=== PATIENT | male | born 1985 ===

== ENCOUNTER 2018-02-25 12:22 | Emergency (ER) | payer OTHER ==
[~2018-02-25 12:22] MED LIST: LISD60TA
[2018-02-25] MEDS ORDERED: LIDOCAINE 2% JELLY 5 ML TUBE TP ONE (12:45)
[2018-02-25] MEDS ORDERED: APAP/HYDROCODONE 325/5 TAB PO ONE (12:45)
--- NOTE | 2018-02-25 13:00 | ER Report ---
History and Physical Time Seen By MD: 12:39 Hx. of Stated Complaint: STUCK R 5TH FINGER IN BLOWDRYER FAN, LAC NOTED THRU NAIL, BLEEDING CONTROLLED. HPI/ROS CHIEF COMPLAINT: finger injury HISTORY OF PRESENT ILLNESS: pt was heat sealing windows with blow dryer which had crack in the back; he mistakenly stuck r small finger in the back, coming in contact with the working fan, leading to laceration at tip of r sm finger. He covered it and came to ED. He complains of moderate pain in finger tip, no pain with movement. Mild decrease sensation ulnar side of distal finger. No other injuries. REVIEW OF SYSTEMS: Respiratory: no difficulty breathing Cardiovascular: No chest pain, no palpitations. Gastrointestinal: no vomiting Musculoskeletal: no other injuries Allergies: Coded Allergies: No Known Drug Allergies (Unverified , 02/15/18) Home Meds Reported Medications Lisdexamfetamine Dimesylate (Vyvanse) 60 Mg Tab.chew, DAILY 01/25/18 Reviewed Nurses Notes: Yes Hx Smoking: Yes (1/3 PACK PER DAY) Smoking Status: Current: Every Day Smoker Exposure to Second Hand Smoke?: No Hx Substance Use Disorder: Yes Hx Alcohol Use: Yes Constitutional Vital Sign - Last 24 Hours 02/25/18 02/25/18 02/25/18 02/25/18 12:29 12:30 12:45 13:00 Temp 98.6 Pulse 83 86 87 78 Resp 16 B/P (MAP) 133/91 124/86 (99) 114/86 (95) Pulse Ox 97 97 94 94 O2 Delivery Room Air 02/25/18 02/25/18 13:30 13:45 Pulse 71 77 B/P (MAP) 122/87 (99) Pulse Ox 94 95 Physical Exam General Appearance: The patient is alert, has no immediate need for airway protection and no current signs of toxicity. [ ] Eyes: Pupils equal and round no injection. Respiratory: no tachypnea Cardiac: regular rate Musculoskeletal: Extremities have full range of motion and are non tender with exception of distal phalanx of r sm finger; no stepoffs Skin: 1/2 cm distal laceration that includes distal nail, no separation. DIFFERENTIAL DIAGNOSIS: After history and physical exam differential diagnosis was considered for fracture, subungual hematoma, foreign body, fracture. Medical Decision Making EKG/Imaging Imaging X-ray: finger was obtained. I viewed the images myself on the PACS system. My interpretation of the images is: no fracture, foreign body. The radiologist interpretation had no clinically significant variation from this interpretation. ED Course/Re-evaluation ED Course After evalution, no e/o fb, finger irrigated thoroughly, no fracture. After consideration of r/b, as no active bleeding, wound intact, I recommend no suturing/dermabond. Discussed r/b, f/u recommendations, SRP's. Tetanus updated. Decision to Disposition Date: Feb 25, 2018 Decision to Disposition Time: 13:41 Depart Departure Latest Vital Signs Vital Signs Date Time Temp Pulse Resp B/P (MAP) Pulse Ox O2 Delivery O2 Flow Rate FiO2 02/25/18 13:45 77 95 02/25/18 13:30 122/87 (99) 02/25/18 12:29 98.6 16 Room Air Impression: Primary Impression: Finger laceration Condition: Improved Disposition: HOME OR SELF-CARE Patient Instructions: Finger Laceration (ED) Additional Instructions: As we discussed, I recommend tylenol, ice, elevation for pain. After 24-48 hours, remove bandage and apply bacitracin 2-3 times daily and bandage for protection. Return for signs of infection or any concerns. Problem Qualifiers Primary Impression: Finger laceration Encounter type: initial encounter Finger: little finger Damage to nail status: with damage Foreign body presence: without foreign body Laterality: right Qualified Codes: S61.316A - Laceration without foreign body of right little finger with damage to nail, initial encounter FIDE MARTIN MD Feb 25, 2018 13:00
[2018-02-25 13:30] VITALS: BP 122/87
[2018-02-25] MEDS ORDERED: DIPHTH/TETANUS/ACEL. PERTUSSIS IM ONLY ONE (13:30)
--- NOTE | 2018-02-25 13:34 | RADIOLOGY IMAGING REPORT ---
FACILITY: [facility] PATIENT NAME: Camilo Arthur : 1985 MR: [id number] V: [id number] EXAM DATE: ORDERING PHYSICIAN: FIDE MARTIN TECHNOLOGIST: Location: [facility] Patient: Camilo Arthur : 1985 Visit/Account:[id number] Date of Sevice: 02/25/2018 FINGER RIGHT 5TH DIGIT HISTORY: injury to distal soft tissue, bony ttp Additional history: None COMPARISON: None. FINDINGS: 3 views Bandage material seen around the tip of the right fifth finger. No definite air seen within the soft tissues. No radiopaque foreign bodies. Osseous structures of the right fifth finger are intact. IMPRESSION: Negative exam Report Dictated By: Migue Hackett MD at 02/25/2018 1:28 PM Report E-Signed By: Migue Hackett MD at 02/25/2018 1:30 PM [id number]
== END 2018-02-25 14:00 | disposition home or self-care (01) ==
LOC: ER 13:36
DX: S61.316A Laceration without foreign body of right little finger with damage to nail, initial encounter (principal)
CPT/HCPCS: 90471; 90715; 99283

== ENCOUNTER 2018-02-28 00:33 | Day surgery (SDC) | payer OTHER ==
[~2018-02-28] VITALS: Ht 195.6 cm; Wt 102.5 kg
[2018-02-28] MEDS ORDERED: PROPOFOL EMUL(*) 10MG/ML 20 ML 40 ML ONE (07:25)
[2018-02-28] MEDS ORDERED: LIDOCAINE MPF 1% 5 ML VIAL ONE (07:25)
[2018-02-28 09:00] VITALS: BP 126/86
[2018-02-28] MEDS ORDERED: PROPOFOL EMUL(*) 10MG/ML 20 ML 20 ML ONE (09:24)
[2018-02-28 09:35] VITALS: BP 95/60
--- NOTE | 2018-02-28 09:40 | Short(Outpt) Discharge Summary ---
Discharge Summary Reason for Hosp/Final Diag: (1) History of colon polyps Status: Chronic Hospital Course & Plan: Colonoscopy completed without problems, normal. Departure Discharge to: Home, Self Care Discharge Instructions Home Meds Reported Medications Lisdexamfetamine Dimesylate (Vyvanse) 60 Mg Tab.chew, DAILY 01/25/18 Diet: Regular Activity: As Tolerated Special Instructions: Your colonoscopy was completed without problems and your prep was excellent (Good Job!!). I didn't find any polyp or anything else abnormal. I recommend that your next colonoscopy be in 5 years due to your previous history of colon polyps. IRINA KAY MD Feb 28, 2018 09:40
[2018-02-28 10:00] VITALS: BP 116/74
[2018-02-28 10:17] VITALS: BP 113/82
[2018-02-28 10:18] VITALS: BP 112/86
[2018-02-28] MEDS ORDERED: LIDOCAINE/SOD BICARB 8.4% SYR ID ONE (10:30)
[2018-02-28] MEDS ORDERED: NORMOSOL R SOLN(*) 1000 ML BAG 1,000 ML IV PRN (10:30)
== END 2018-02-28 10:30 | disposition home or self-care (01) ==
LOC: OR 00:33
PROVIDERS: ATTEND Surgery
DX: Z12.11 Encounter for screening for malignant neoplasm of colon (principal); Z86.010 Personal history of colon polyps
CPT/HCPCS: 00812; 45378; J2001; J2704

== ENCOUNTER 2018-07-12 11:12 | Emergency (ER) | payer OTHER ==
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
[2018-07-12] MEDS ORDERED: TRAZ50TA34 PO (11:27)
[2018-07-12] MEDS ORDERED: PARO-243 PO (11:27)
[2018-07-12] MEDS ORDERED: CLON1PAT19 TD (11:27)
[2018-07-12 12:22] LABS: PLATELET COUNT, AUTOMATED 299 K/uL (150-450)
[2018-07-12 13:59] VITALS: BP 138/72
[2018-07-13] MEDS ORDERED: CLON-327 PO (14:51)
[2018-07-13] MEDS ORDERED: PARO10TA80 PO (14:51)
[2018-07-13] MEDS ORDERED: LISD60CA2 PO (14:51)
== END 2018-07-12 14:10 ==
LOC: ER 11:19
DX: R45.851 Suicidal ideations (principal); F41.9 Anxiety disorder, unspecified
CPT/HCPCS: 36415; 80305; 80320; 80329; 81001; 82040; 82247; 82310; 82374; 82435; 82565; 82947; 83735; 84075; 84132; 84155; 84295; 84443; 84450; 84460; 84520; 85025; 99284

== ENCOUNTER 2018-07-12 13:16 | Inpatient (IN) | payer OTHER ==
[~2018-07-12] VITALS: Ht 195.6 cm; Wt 99.8 kg
[~2018-07-12 13:16] MED LIST changes: +CLON1PAT19 TD; +PARO-243 PO; +TRAZ50TA34 PO
[2018-07-12 15:45] VITALS: BP 123/93
[2018-07-12] MEDS ORDERED: MAG HYD/AL HYD/SIMETH 30ML UDC PO PRN (15:50)
[2018-07-12] MEDS ORDERED: ACETAMINOPHEN 325 MG TAB PO PRN (15:50)
[2018-07-12] MEDS ORDERED: NICOTINE CARTRIDGE 1 EA PO PRN (17:30)
[2018-07-12] MEDS ORDERED: NICOTINE INH SYSTEM 10 MG/INH INH PRN (17:30)
[2018-07-12] MEDS ORDERED: NICOTINE POLACRILEX 2 MG GUM PO PRN ×2 (17:35)
[2018-07-12] MEDS: traZODone HCL 50 MG TAB PO SCH (20:51)
[2018-07-13 06:21] VITALS: BP 124/80
[2018-07-13] MEDS ORDERED: NICOTINE CARTRIDGE 1 EA PO PRN (07:05)
[2018-07-13] MEDS: NICOTINE INH SYSTEM 10 MG/INH INH PRN ×4 (07:27→20:15)
[2018-07-13] MEDS: MULTIVITAMINS PO SCH (08:23)
[2018-07-13] MEDS ORDERED: cloNIDine HCL 0.1 MG TAB PO PRN (09:50)
[2018-07-13] MEDS: PARoxetine HCL 20 MG TAB PO SCH (10:09)
[2018-07-13 12:09] VITALS: BP 118/89
[2018-07-13] MEDS ORDERED: LISD60CA2 PO (14:51)
[2018-07-13] MEDS ORDERED: CLON-327 PO (14:51)
[2018-07-13] MEDS ORDERED: PARO10TA80 PO (14:51)
[2018-07-13] MEDS: DOCUSATE SODIUM 100 MG CAP PO SCH (17:46)
[2018-07-13] MEDS: traZODone HCL 50 MG TAB PO SCH (20:36)
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
[2018-07-14 05:49] VITALS: BP 112/68
[2018-07-14] MEDS: NICOTINE INH SYSTEM 10 MG/INH INH PRN ×3 (08:18→20:39)
[2018-07-14] MEDS: MULTIVITAMINS PO SCH (08:18)
[2018-07-14] MEDS: DOCUSATE SODIUM 100 MG CAP PO SCH (08:18)
[2018-07-14] MEDS: PARoxetine HCL 20 MG TAB PO SCH (08:18)
[2018-07-14 13:05] VITALS: BP 116/74
--- NOTE | 2018-07-14 13:26 | BHS Progress Note ---
[facility] - Subjective Progress Notes Subjective Pt seen in treatment team with his and therapist attending. Pt still reporting depression and anxiety, though resolving a bit. Still a lot of negative thinking, self-doubt. Denies SI today, last time was yesterday morning. Tolerating meds well without side effects. I did speak with pt r egarding possibility of priapism with trazodone, and also possible sexual side effects with paroxetine, and he understands to seek medical attention if priapism. In team we discussed possibility of couples therapy for pt and his after discharge and they are both agreeable. Will continue suicide precautions, continue current medications. Suicidal Ideation: None Homicidal Ideation: None [facility] - Objective Physical Exam Vital Signs Vital Signs 07/14/18 13:05 Temp 97.9 Pulse 90 Resp 16 B/P (MAP) 116/74 (88) Pulse Ox 92 O2 Delivery Room Air Muscle Strength and Tone: WNL Gait and Station: Steady [facility] Medications Reviewed: Side Effects, Benefits of Medication, Risks Mental Status Exam General Appearance: Casual, Well Groomed, Good Eye Contact, Cooperative, Polite, Good Interaction, Tearful Speech: Clear, Spontaneous, Normal Rate, Normal Rhythm, Normal Volume, Normal Tone Mood: Dysthmic/Depressed Affect: Calm, Sad Thought Process: Organized, Logical, Goal Directed Thought Content: Suicidal Ideation (resolving); No Homicidal Ideation, No Delusions, No Auditory Halllucinations, No Visual Hallucinations, No Thought Broadcasting, No Ideas of Reference, No Obsessions, No Compulsions, No Other Sensorium: Clear Cognition: Alert & Oriented-Person, Alert & Oriented-Place, Alert & Oriented- Time, Glrym-Vqorhnvb-Xycbyybif Memory: Immediate, Recent, Remote Intelligence: Above Average Insight Judgment: Fair [facility] Assessment and Plan [id number] Encounter Date: Jul 14, 2018 Knxo-[id number] Encounter Time: 09:30 [facility] Plan: Admit to Unit, Necessary Precautions, Individual/Group Therapy, Admin/Titrate Meds, Educate Patient Tobacco Medications: Started Multpiple Antipsychotics Used: No Problems: (1) Major depressive disorder (2) Cannabis use disorder, mild, abuse FRANCES COX MD Jul 14, 2018 13:26
[2018-07-14] MEDS: traZODone HCL 50 MG TAB PO SCH (20:39)
[2018-07-14 20:41] VITALS: BP 119/80
[2018-07-15 06:10] VITALS: BP 123/75
[2018-07-15] MEDS: MULTIVITAMINS PO SCH (07:55)
[2018-07-15] MEDS: PARoxetine HCL 20 MG TAB PO SCH (07:55)
[2018-07-15] MEDS: DOCUSATE SODIUM 100 MG CAP PO SCH (07:55)
--- NOTE | 2018-07-15 08:48 | BHS Progress Note ---
BHS - Subjective Progress Notes Subjective "The past couple of days things have been a lot better. When I started getting really depressed, I started using a lot of cannabis and now I'm coming off of that." Rating depression 04/20, last suicidal ideation ", the old plan was a gun but that's not an option now. There's no firearms in my house and I'm not going to park in the garage." Worries about "loneliness" when returns home, doesn't want to isolate Kari at [facility] current therapist, working on marital stress Anxiety 07/19, "too much caffeine" at home causes increased anxiety, was drinking up to 500mg/day Denies s/s helga or psychosis, sleep improving, going to bed earlier Suicidal Ideation: None Homicidal Ideation: None S - Objective Physical Exam Vital Signs Vital Signs Date Time Temp Pulse Resp B/P (MAP) Pulse Ox O2 Delivery O2 Flow Rate FiO2 07/15/18 06:10 97.2 63 123/75 (91) 95 Room Air 07/14/18 13:05 16 Muscle Strength and Tone: WNL Gait and Station: Steady BHS Medications Reviewed: Side Effects, Benefits of Medication, Risks Allergies Reviewed: Yes (minimal depression) Mental Status Exam General Appearance: Casual, Well Groomed, Good Eye Contact, Cooperative, Polite, Good Interaction, Tearful Speech: Clear, Spontaneous, Normal Rate, Normal Rhythm, Normal Volume, Normal Tone Mood: Dysthmic/Depressed Affect: Full and Appropriate, Calm; No Sad Thought Process: Organized, Logical, Goal Directed Thought Content: No Homicidal Ideation, No Delusions, No Auditory Halllucin ations, No Visual Hallucinations, No Thought Broadcasting, No Ideas of Reference, No Obsessions, No Compulsions, No Other Sensorium: Clear Cognition: Alert & Oriented-Person, Alert & Oriented-Place, Alert & Oriented- Time, Bteiv-Qipqjaqs-Rynqmchxo Memory: Immediate, Recent, Remote Intelligence: Above Average Insight Judgment: Fair Lab Allergies Coded Allergies No Known Drug Allergies (Uohfyojfjb08/7/18) Vital Signs Date Time Temp Pulse Resp B/P (MAP) Pulse Ox O2 Delivery O2 Flow Rate FiO2 07/15/18 06:10 97.2 63 123/75 (91) 95 Room Air 07/14/18 13:05 16 S Assessment and Plan Tjzj-uw-Zpfx Encounter Date: Jul 15, 2018 Hyjx-fc-Pgsm Encounter Time: 08:45 [facility] Plan: Admit to Unit, Necessary Precautions, Individual/Group Therapy, Admin/Titrate Meds, Educate Patient Tobacco Medications: Started Multpiple Antipsychotics Used: No Problems: (1) Major depressive disorder Status: Chronic (2) Cannabis use disorder, mild, abuse Status: Chronic (3) Suicidal ideations Status: Resolved Condition Continue current medications and treatment Encourage outpatient individual therapy and medication management upon discharge Plans on couples therapy upon discharge at [facility] Maintain precautions Ongoing discharge planning Treatment team Tuesday07/17/18 DARIUSZ ROSENTHAL NP Jul 15, 2018 08:48
[2018-07-15 12:55] VITALS: BP 116/78
[2018-07-15] MEDS: NICOTINE INH SYSTEM 10 MG/INH INH PRN (19:15)
[2018-07-15 19:47] VITALS: BP 118/76
[2018-07-15] MEDS ORDERED: MAGNESIUM CITRATE 300 ML BTL PO ONE (20:20)
[2018-07-15] MEDS: traZODone HCL 50 MG TAB PO SCH (21:31)
[2018-07-16 06:12] VITALS: BP 121/74
[2018-07-16] MEDS: PARoxetine HCL 20 MG TAB PO SCH (08:18)
[2018-07-16] MEDS: MULTIVITAMINS PO SCH (08:18)
[2018-07-16] MEDS: NICOTINE INH SYSTEM 10 MG/INH INH PRN ×2 (08:18→12:53)
[2018-07-16] MEDS: DOCUSATE SODIUM 100 MG CAP PO SCH (08:18)
--- NOTE | 2018-07-16 09:29 | BHS Progress Note ---
[facility] - Subjective Progress Notes Subjective "Great. I feel much much better. I don't feel sad, I don't feel anxious." Denies Si reporting his last SI was morning. He denies problems with sleep overall and that Trazodone continues to be helpful PRN. He is working on his wellness and recovery plan. His and therapist will be involved in treatment team tomorrow morning. Suicidal Ideation: None Homicidal Ideation: None [facility] - Objective Physical Exam Vital Signs Vital Signs Date Time Temp Pulse Resp B/P (MAP) Pulse Ox O2 Delivery O2 Flow Rate FiO2 07/16/18 06:12 98.9 68 121/74 (90) 95 Room Air 07/15/18 12:55 16 Muscle Strength and Tone: WNL Gait and Station: Steady [facility] Medications Reviewed: Side Effects, Benefits of Medication, Risks Allergies Reviewed: Yes (minimal depression) Mental Status Exam General Appearance: Casual, Well Groomed, Good Eye Contact, Cooperative, Polite, Good Interaction, Tearful Speech: Clear, Spontaneous, Normal Rate, Normal Rhythm, Normal Volume, Normal Tone Mood: Euthymic Affect: Full and Appropriate, Calm; No Sad Thought Process: Organized, Logical, Goal Directed; No Loose Associations, No Flight of Ideas Thought Content: No Homicidal Ideation, No Delusions, No Auditory Halllucinations, No Visual Hallucinations, No Thought Broadcasting, No Ideas of Reference, No Obsessions, No Compulsions, No Other Sensorium: Clear Cognition: Alert & Oriented-Person, Alert & Oriented-Place, Alert & Oriented- Time, Kjwyq-Nchyhizq-Lteupccll Memory: Immediate, Recent, Remote Intelligence: Above Average Insight Judgment: Fair [facility] Assessment and Plan Evhv-fd-Wtxc Encounter Date: Jul 16, 2018 Xugx-kd-Osxj Encounter Time: 09:00 [facility] Plan: Admit to Unit, Necessary Precautions, Individual/Group Therapy, Admin/Titrate Meds, Educate Patient Tobacco Medications: Started Multpiple Antipsychotics Used: No Problems: (1) Major depressive disorder Status: Chronic Problem Qualifiers (1) Major depressive disorder: Major depression recurrence: recurrent Major depression episode severity: moderate KYLAH PITTS NP Jul 16, 2018 09:29
[2018-07-16] MEDS ORDERED: DOCU-416 PO (13:02)
[2018-07-16] MEDS ORDERED: NIC10R INH (13:02)
[2018-07-16] MEDS ORDERED: MULT-859 PO (13:03)
--- NOTE | 2018-07-17 03:55 | DISCHARGE SUMMARY ---
DATE OF ADMISSION: July 12, 2018 DATE OF DISCHARGE: July 16, 2018 Genb-ra-lfho visit with patient on 07/16/2018 at 0930. ATTENDING PRACTITIONER Deonna Day, Psychiatric Nurse Practitioner. FINAL DIAGNOSES 1. Major depressive disorder, recurrent, moderate. 2. Cannabis use disorder, mild. 3. Attention-deficit hyperactivity disorder. REASON FOR ADMISSION This is a 32-year-old fczdcij-zcv-aeuojvixp male admitted to the unit on a voluntary basis due to increasing depression with suicidal ideation. PHYSICAL EXAMINATION Please see emergency room note for a complete review of systems. Vital signs on the day of discharge include temperature 98.9, pulse 68, blood pressure 121/74, oxygen saturations 95% on room air. He denies any physical complaints. LABORATORY DATA Completed on admission, include unremarkable CBC, chem panel, TSH. Toxicology screen was positive for amphetamines due to his Vyvanse. MENTAL STATUS EXAMINATION GENERAL APPEARANCE, BEHAVIOR AND ATTITUDE: Patient is pleasant and cooperative. He appears his stated age, and he has good grooming. SPEECH: Clear, spontaneous, and of normal rate, rhythm, and volume. MOOD: Described as great, feeling much better. "I don't feel sad." AFFECT: Rangeful and appropriate and mood-congruent. THOUGHT PROCESSES: Logical and goal-directed. No loose associations or flight of ideas. THOUGHT CONTENT: He denies any suicidal thoughts, homicidal thoughts; is free of any hallucinations, ideas of reference. No delusions are elicited. SENSORIUM: Clear. COGNITION: He is alert and oriented to person, place, time, and situation. MEMORY: Immediate, recent, and remote estimated grossly intact. INTELLIGENCE: Average, based upon interview. INSIGHT AND JUDGMENT: Good. He acknowledges that he has been struggling with depression. He is invested in continuing in his outpatient management with his outpatient providers. TREATMENT Patient was continued on his outpatient medications including Paxil and his trazodone as well as clonidine, in treatment of depression and anxiety. He participated in individual, group and milieu therapy and psychoeducation. HOSPITAL COURSE Patient was pleasant and cooperative throughout his stay. He denied suicidal ideation, reporting that his last suicidal thought was prior to admission. We did meet with the patient this morning in treatment team, and it was later in the afternoon that he decided that he was feeling ready to discharge and requested to do so. CONDITION OF PATIENT ON DISCHARGE Considered stable and a minimal risk to himself and others, appropriate for outpatient management. DISPOSITION Patient was discharged to home. He is to follow up with his providers at [facility] as scheduled for medications and therapy. Patient was discharged on the following medications: 1. Paxil 20 mg daily. 2. Clonidine 0.05 mg every six hours as needed or anxiety. 3. Trazodone 50 mg at bedtime. 4. He will resume his outpatient Vyvanse. The 24-hour crisis line number was provided should symptoms or problems return. The risks, benefits, and alternatives of the above discharge plan were discussed with client. Informed consent was given to proceed with the above discharge plan by this competent patient. THELMA
== END 2018-07-16 13:30 | disposition home or self-care (01) | DRG 885 ==
LOC: BHS 13:16
PROVIDERS: ADMIT Psychiatry & Neurology Psychiatry; ATTEND Psychiatry & Neurology Psychiatry
DX: F33.1 Major depressive disorder, recurrent, moderate (principal); R45.851 Suicidal ideations; F12.10 Cannabis abuse, uncomplicated; F90.9 Attention-deficit hyperactivity disorder, unspecified type; Z63.5 Disruption of family by separation and divorce; Z81.8 Family history of other mental and behavioral disorders

== ENCOUNTER 2018-08-05 20:38 | Emergency (ER) | payer OTHER ==
[~2018-08-05 20:38] MED LIST changes: +CLON-327 PO; +DOCU-416 PO; +LISD60CA2 PO; +MULT-859 PO; +NIC10R INH; +PARO10TA80 PO
--- NOTE | 2018-08-05 20:44 | ER Report ---
History and Physical Time Seen By MD: 20:44 HPI/ROS CHIEF COMPLAINT: Suicidal ideation HISTORY OF PRESENT ILLNESS: 32-year-old male run in by police on an emergency assisted after he expressed suicidal ideation. He was planning to clean out h is garage and pull his car in insert the engine and I of carbon monoxide poisoning. Patient was just in 3 weeks ago to our mental health unit for 3 days for similar presentation and alcohol abuse. Patient appears very withdrawn and laxative days ago with his reasoning. States a matter fact that he is planning to kill himself. REVIEW OF SYSTEMS: Respiratory: No cough, no dyspnea. Cardiovascular: No chest pain, no palpitations. Gastrointestinal: No vomiting, no abdominal pain. Musculoskeletal: No back pain. Allergies: Coded Allergies: No Known Drug Allergies (Unverified , 02/15/18) Home Meds Reported Medications Multivits,Ca,Minerals/Iron/Fa (THERA-M TABLET) 1 Each Tablet, 1 EACH PO DAILY 07/16/18 Docusate Sodium (COLACE) 100 Mg Capsule, 100 MG PO QAM, CAPSULE 07/16/18 Nicotine (NICOTROL) 10 Mg/Inh Ctr, 10 MG INH Q1-2H PRN for NICOTINE REPLACEMENT 07/16/18 Paroxetine Hcl (PAROXETINE HCL) 10 Mg Tablet, 20 MG PO QDAY 07/13/18 Clonidine Hcl (CLONIDINE HCL) 0.1 Mg Tablet, 0.5-1 TAB PO BID, TAB 07/13/18 Lisdexamfetamine Dimesylate (VYVANSE) 60 Mg Capsule, 60 MG PO QDAY, CAPSULE 07/13/18 Trazodone Hcl (TRAZODONE HCL) 50 Mg Tablet, 0.5-1 TAB PO QHS PRN for SLEEP 07/12/18 Reviewed Nurses Notes: Yes Old Medical Records Reviewed: Yes Hx Smoking: Yes Smoking Status: Current: Every Day Smoker Exposure to Second Hand Smoke?: No Hx Substance Use Disorder: Yes Hx Alcohol Use: Yes Constitutional Vital Sign - Last 24 Hours 08/05/18 08/05/18 08/05/18 20:49 22:30 23:00 Temp 98.8 Pulse 79 79 88 Resp 16 18 16 B/P (MAP) 117/77 118/74 (89) 122/68 (86) Pulse Ox 92 96 Physical Exam General Appearance: The patient is alert, has no immediate need for airway protection and no current signs of toxicity. Eyes: Pupils equal and round no injection. Respiratory: Chest is non tender, lungs are clear to auscultation. Cardiac: regular rate and rhythm Gastrointestinal: Abdomen is soft and non tender, no masses, bowel sounds normal. Musculoskeletal: Neck: Neck is supple and non tender. Extremities have full range of motion and are non tender. Skin: No rashes or lesions. DIFFERENTIAL DIAGNOSIS: After history and physical exam differential diagnosis was considered for depression including functional and major depression, situational depression, medication side effect, suicidal ideation, suicidal attempt, drugs and alcohol abuse. Medical Decision Making Data Points Result Diagram: 08/05/18210908/05/182109 Laboratory Hematology Test 08/05/18 21:10 08/05/18 21:35 Red Blood Count 5.71 M/uL (4.00-5.60) Mean Corpuscular Volume 87.2 fL (80.0-96.0) Mean Corpuscular Hemoglobin 29.5 pg (26.0-33.0) Mean Corpuscular Hemoglobin Concent 33.9 g/dL (32.0-36.0) Red Cell Distribution Width 13.2 % (11.5-14.5) Mean Platelet Volume 8.2 fL (7.2-11.1) Neutrophils (%) (Auto) 61.0 % (39.4-72.5) Lymphocytes (%) (Auto) 32.9 % (17.6-49.6) Monocytes (%) (Auto) 4.7 % (4.1-12.4) Eosinophils (%) (Auto) 0.6 % (0.4-6.7) Basophils (%) (Auto) 0.8 % (0.3-1.4) Nucleated RBC Relative Count (auto) 0.0 /100WBC Neutrophils # (Auto) 5.7 K/uL (2.0-7.4) Lymphocytes # (Auto) 3.1 K/uL (1.3-3.6) Monocytes # (Auto) 0.4 K/uL (0.3-1.0) Eosinophils # (Auto) 0.1 K/uL (0.0-0.5) Basophils # (Auto) 0.1 K/uL (0.0-0.1) Nucleated RBC Absolute Count (auto) 0.00 K/uL Sodium Level 145 mmol/L (137-145) Potassium Level 3.9 mmol/L (3.5-5.0) Chloride Level 106 mmol/L (98-107) Carbon Dioxide Level 23 mmol/L (22-30) Blood Urea Nitrogen 15 mg/dl (9-21) Creatinine 0.80 mg/dl (0.66-1.25) Glomerular Filtration Rate Calc > 60.0 Random Glucose 130 mg/dl (75-110) Calcium Level 9.1 mg/dl (8.4-10.2) Magnesium Level 2.4 mg/dl (1.7-2.2) Total Bilirubin 0.3 mg/dl (0.2-1.3) Aspartate Amino Transf (AST/SGOT) 38 U/L (0-35) Alanine Aminotransferase (ALT/SGPT) 20 U/L (0-56) Alkaline Phosphatase 56 U/L (0-126) Total Protein 8.0 g/dl (6.3-8.2) Albumin 4.9 g/dl (3.5-5.0) Salicylates Level < 10 mg/L Salicylate Last Dose Date unk Acetaminophen Level < 10 ug/ml Serum Alcohol 245 mg/dl Urine Color Yellow Urine Clarity Clear Urine pH 6.0 pH (4.8-9.5) Urine Specific [place] 1.009 Urine Protein Negative mg/dL (NEGATIVE) Urine Glucose (UA) Negative mg/dL (NEGATIVE) Urine Ketones Negative mg/dL (NEGATIVE) Urine Blood Negative (NEGATIVE) Urine Nitrite Negative (NEGATIVE) Urine Bilirubin Negative (NEGATIVE) Urine Urobilinogen Negative mg/dL (0.2-1.9) Urine Leukocyte Esterase Negative (NEGATIVE) Urine RBC 1 /HPF (0-2/HPF) Urine WBC 1 /HPF (0-5/HPF) Urine Squamous Epithelial Cells None /LPF (</=FEW) Urine Bacteria Negative /HPF (NONE-FEW) Urine Mucus None /HPF (NONE-FEW) Urine Opiates Screen Negative Urine Barbiturates Screen Negative Ur Tricyclic Antidepressants Screen Negative Urine Phencyclidine Screen Negative Urine Amphetamines Screen Positive Urine Benzodiazepines Screen Negative Urine Cocaine Screen Negative Urine Cannabinoids Screen Negative Chemistry Test 08/05/18 21:10 08/05/18 21:35 White Blood Count 9.4 k/uL (4.5-11.0) Red Blood Count 5.71 M/uL (4.00-5.60) Hemoglobin 16.9 g/dL (14.0-18.0) Hematocrit 49.8 % (42.0-52.0) Mean Corpuscular Volume 87.2 fL (80.0-96.0) Mean Corpuscular Hemoglobin 29.5 pg (26.0-33.0) Mean Corpuscular Hemoglobin Concent 33.9 g/dL (32.0-36.0) Red Cell Distribution Width 13.2 % (11.5-14.5) Platelet Count 323 K/uL (150-450) Mean Platelet Volume 8.2 fL (7.2-11.1) Neutrophils (%) (Auto) 61.0 % (39.4-72.5) Lymphocytes (%) (Auto) 32.9 % (17.6-49.6) Monocytes (%) (Auto) 4.7 % (4.1-12.4) Eosinophils (%) (Auto) 0.6 % (0.4-6.7) Basophils (%) (Auto) 0.8 % (0.3-1.4) Nucleated RBC Relative Count (auto) 0.0 /100WBC Neutrophils # (Auto) 5.7 K/uL (2.0-7.4) Lymphocytes # (Auto) 3.1 K/uL (1.3-3.6) Monocytes # (Auto) 0.4 K/uL (0.3-1.0) Eosinophils # (Auto) 0.1 K/uL (0.0-0.5) Basophils # (Auto) 0.1 K/uL (0.0-0.1) Nucleated RBC Absolute Count (auto) 0.00 K/uL Glomerular Filtration Rate Calc > 60.0 Calcium Level 9.1 mg/dl (8.4-10.2) Magnesium Level 2.4 mg/dl (1.7-2.2) Total Bilirubin 0.3 mg/dl (0.2-1.3) Aspartate Amino Transf (AST/SGOT) 38 U/L (0-35) Alanine Aminotransferase (ALT/SGPT) 20 U/L (0-56) Alkaline Phosphatase 56 U/L (0-126) Total Protein 8.0 g/dl (6.3-8.2) Albumin 4.9 g/dl (3.5-5.0) Salicylates Level < 10 mg/L Salicylate Last Dose Date unk Acetaminophen Level < 10 ug/ml Serum Alcohol 245 mg/dl Urine Color Yellow Urine Clarity Clear Urine pH 6.0 pH (4.8-9.5) Urine Specific [place] 1.009 Urine Protein Negative mg/dL (NEGATIVE) Urine Glucose (UA) Negative mg/dL (NEGATIVE) Urine Ketones Negative mg/dL (NEGATIVE) Urine Blood Negative (NEGATIVE) Urine Nitrite Negative (NEGATIVE) Urine Bilirubin Negative (NEGATIVE) Urine Urobilinogen Negative mg/dL (0.2-1.9) Urine Leukocyte Esterase Negative (NEGATIVE) Urine RBC 1 /HPF (0-2/HPF) Urine WBC 1 /HPF (0-5/HPF) Urine Squamous Epithelial Cells None /LPF (</=FEW) Urine Bacteria Negative /HPF (NONE-FEW) Urine Mucus None /HPF (NONE-FEW) Urine Opiates Screen Negative Urine Barbiturates Screen Negative Ur Tricyclic Antidepressants Screen Negative Urine Phencyclidine Screen Negative Urine Amphetamines Screen Positive Urine Benzodiazepines Screen Negative Urine Cocaine Screen Negative Urine Cannabinoids Screen Negative Toxicology Test 08/05/18 21:10 08/05/18 21:35 Salicylates Level < 10 mg/L Salicylate Last Dose Date unk Acetaminophen Level < 10 ug/ml Serum Alcohol 245 mg/dl Urine Opiates Screen Negative Urine Barbiturates Screen Negative Ur Tricyclic Antidepressants Screen Negative Urine Phencyclidine Screen Negative Urine Amphetamines Screen Positive Urine Benzodiazepines Screen Negative Urine Cocaine Screen Negative Urine Cannabinoids Screen Negative Urinalysis Test 08/05/18 21:35 Urine Color Yellow Urine Clarity Clear Urine pH 6.0 pH (4.8-9.5) Urine Specific [place] 1.009 Urine Protein Negative mg/dL (NEGATIVE) Urine Glucose (UA) Negative mg/dL (NEGATIVE) Urine Ketones Negative mg/dL (NEGATIVE) Urine Blood Negative (NEGATIVE) Urine Nitrite Negative (NEGATIVE) Urine Bilirubin Negative (NEGATIVE) Urine Urobilinogen Negative mg/dL (0.2-1.9) Urine Leukocyte Esterase Negative (NEGATIVE) Urine RBC 1 /HPF (0-2/HPF) Urine WBC 1 /HPF (0-5/HPF) Urine Squamous Epithelial Cells None /LPF (</=FEW) Urine Bacteria Negative /HPF (NONE-FEW) Urine Mucus None /HPF (NONE-FEW) ED Course/Re-evaluation ED Course Patient was admitted to an examination room. H&P was done. The differential diagnosis was considered. On clinical examination. Patient alert, responsive. He is intoxicated, but I'll call returns at 251. Patients. Tox screen is negative. Patient appears withdrawn and laxadaysical ago about his situation. Patient's previous note from 3 weeks ago was reviewed. 08/05/2018 10:11:18 pm case discussed with [place] nurse practitioner a [facility] who accepted the patient for admission on an emergency assisted. I completed title 25 evaluation and agree with upholding assisted. Decision to Disposition Date: Aug 05, 2018 Decision to Disposition Time: 22:11 Depart Departure Latest Vital Signs Vital Signs Date Time Temp Pulse Resp B/P (MAP) Pulse Ox O2 Delivery O2 Flow Rate FiO2 08/05/18 23:00 88 16 122/68 (86) 96 08/05/18 20:49 98.8 Impression: Primary Impression: Depression with suicidal ideation Condition: Improved Disposition: XFER TO [facility] Referrals: AMY KEITH (PCP) NICKO TEJEDA DO Aug 05, 2018 20:44
[2018-08-05] MEDS ORDERED: ONDANSETRON 4 MG ODT TABDP SL ONE (21:15)
[2018-08-05 21:27] LABS: PLATELET COUNT, AUTOMATED 323 K/uL (150-450)
[2018-08-05 23:00] VITALS: BP 122/68
== END 2018-08-05 23:30 ==
LOC: ER 20:48
DX: F32.9 Major depressive disorder, single episode, unspecified (principal); R45.851 Suicidal ideations; F10.120 Alcohol abuse with intoxication, uncomplicated; Y90.8 Blood alcohol level of 240 mg/100 ml or more
CPT/HCPCS: 80305; 80320; 80329; 81001; 83735; 84443; 85025; 99284; S0119; 82040; 82247; 82310; 82374; 82435; 82565; 82947; 84075; 84132; 84155; 84295; 84450; 84460; 84520

== ENCOUNTER 2018-08-05 22:14 | Inpatient (IN) | payer OTHER ==
[~2018-08-05] VITALS: Ht 188 cm; Wt 95.3 kg
[2018-08-05] MEDS ORDERED: MAG HYD/AL HYD/SIMETH 30ML UDC PO PRN (22:55)
[2018-08-05 23:30] VITALS: BP 103/80
[2018-08-05] MEDS: DIAZEPAM 10 MG TAB PO PRN (23:51)
[2018-08-06 06:38] LABS: PLATELET COUNT, AUTOMATED 294 K/uL (150-450)
[2018-08-06 08:00] VITALS: BP 128/90
[2018-08-06] MEDS: FOLIC ACID 1 MG TAB PO SCH (08:19)
[2018-08-06] MEDS: MULTIVITAMINS TAB PO SCH (08:19)
[2018-08-06] MEDS: THIAMINE HCL 100 MG TAB PO SCH (08:19)
[2018-08-06] MEDS: DIAZEPAM 10 MG TAB PO PRN ×4 (08:21→21:03)
[2018-08-06] MEDS: NICOTINE INH SYSTEM 10 MG/INH INH PRN ×2 (09:31→19:56)
[2018-08-06] MEDS ORDERED: NICOTINE CARTRIDGE 1 EA PO PRN (09:35)
--- NOTE | 2018-08-06 17:02 | BHS - Psychiatric Evaluation ---
ER - Title 25 MHE Evaluation Title 25 Evaluation Patient Detained By: Physician (Upheld by Dr. Gutierrez), Law Enforcement (Initiated by Triage Register Nurse) Referral Source: Professional: Law Enforcement Date Patient Detained: Aug 05, 2018 Time Patient Detained: 20:33 Date Skilled Nursing Expires: August 10, 2018 Time Skilled Nursing Expires: 00:00 Legal Status: Police Hold: No Legal Status: Residence: [facility] Resident, State Resident Assessment Data Provided By: Patient, Other Source (Electronic health record (EHR) and [facility] professional staff) HPI/ROS: Patient is a 32 year old male who reports his marriage is ending. He has had suicidal thoughts especially in response to the impending divorce. Reports that his sleep has been exceedingly poor. Says, One time I had only 4 hours of sleep in a 72 hour period. Reports high levels of shame/guilt and "self-directed depression." Had a gun removed from his home, and then removed knives and placed objects in the way of patient being able to pull his car into the garage and harm himself with leaving his car motor running in the garage. Patient has very sad affect and says he feels especially lonely and like a failure on the weekends. States he researched the medications that were prescribed to him during his last hospitalization to see how many he needed to take in order to overdose. Another time had a loaded gun to his face, and thought of ending his life. Has thought of pulling his car into the garage. Called the crisis line because, On the weekends, "I don't do well." he says. Relationship has just ended with and she is already dating. Patient said he was intoxicated, and was suicidal with no exact plan but rates intensity of ideation at a "9" with 10 being most intense suicidality. Admit due to SI or Attempt: Yes Suicide Plan: Has Plan with Access Current Suicide Plan No exact plan this time, but this month has considered several plans. Alcohol or Drugs Involved: Yes (Alcohol) Is Patient Info Reliable: Yes Is Collateral Info Reliable: Yes (3-81 ) Mental Status Exam General Appearance: Well Groomed, Good Eye Contact, Cooperative, Polite, Good Interaction Speech: Clear, Spontaneous, Normal Rate, Normal Rhythm, Normal Volume Mood: Dysthmic/Depressed (Patient is tearful.) Affect: Full and Appropriate, Sad, Tearful Thought Process: Organized, Goal Directed Thought Content: Suicidal Ideation Sensorium: Clear Cognition: Alert & Oriented-Person, Alert & Oriented-Place, Alert & Oriented- Time, Ubtgz-Zbnatrto-Isqrkihtj Memory: Immediate, Recent, Remote Insight Judgment: Poor Sleep: Insomnia Hallucinations: Denies Delusions: Denies Current Risk & History Current Dangerous Risk Assessm: Current Suicide Ideation (Rates suicidal ideation today at a "2," but just last night rated suicidality at a "9" with 10 being most extreme suicidality.) Past Dangerous Risk Assessm: Suicide Ideation-last 6mo, Suicide Attempts-last 6mo (Says he did poke himself with a knife.) Prior Alcohol/Drug Abuse Reports some binge drinking and cannabis use. Previous Suicide Attempt: Past - Low Lethality (Poked himself with a knife, and removed all knives.) Previous Psychiatric Illness: Yes (Depression and served in in [employer], some vicarious traumatization.) Previous Diagnosis/Treatment: Was seen at [facility] earlier this month. Previous Psychiatric Treatment: Yes Risk Assessment & Disposition Evaluated Risk Assessment: Risk to patient is moderate to high given the intensity with which he was considering ending his life, his impaired state, and his despair related to his marriage ending. Impression: Primary Impression: Depression with suicidal ideation Additional Impression: Major depressive disorder Meets Mental Illness Req.: Yes Meets Dangerousness Req.: Yes Emergency Skilled Nursing to be: Upheld Decision Comment: Risk to patient is moderate to high given the intensity with which he was considering ending his life, his impaired state, and his despair related to his marriage ending. Patient is quite willing to seek resources and feels a hospitalization is appropriate for him at this time. He may be able to decide to sign into [facility] voluntarily once he has slept a full night, and has been observed by a physician to be stable. Date of Decision: Aug 06, 2018 Time of Decision: 17:00 Patient is Medically Stable at: Yes Disposition: [facility] Problem Qualifiers XU MEYERS LPC Aug 06, 2018 17:02
[2018-08-06 17:10] VITALS: BP 122/78
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
[2018-08-07 06:03] VITALS: BP 107/86
[2018-08-07 06:16] LABS: PLATELET COUNT, AUTOMATED 257 K/uL (150-450)
[2018-08-07] MEDS: THIAMINE HCL 100 MG TAB PO SCH (08:26)
[2018-08-07] MEDS: MULTIVITAMINS TAB PO SCH (08:26)
[2018-08-07] MEDS: FOLIC ACID 1 MG TAB PO SCH (08:27)
[2018-08-07] MEDS: NICOTINE INH SYSTEM 10 MG/INH INH PRN ×4 (08:27→21:23)
[2018-08-07 09:45] VITALS: BP 120/86
[2018-08-07 10:23] VITALS: BP 132/88
[2018-08-07] MEDS: lamoTRIgine 25 MG TAB PO SCH (12:03)
--- NOTE | 2018-08-07 12:45 | EKG ---
FACILITY: [facility] PATIENT NAME: ESTELITA OROZCO : [id number] MR: [id number] V: [id number] EXAM DATE: ORDERING PHYSICIAN: FRANCES COX TECHNOLOGIST: BRYSON Vallecillo Reason : CP Blood Pressure : / mmHG Vent. Rate : 069 BPM Atrial Rate : 069 BPM P-R Int : 130 ms QRS Dur : 110 ms QT Int : 392 ms P-R-T Axes : 012 057 034 degrees QTc Int : 420 ms Normal sinus rhythm No ST-T abnormalities No previous ECGs available Confirmed by ANTHONY HARRISON ([id number]) on 08/07/2018 4:39:15 PM Referred By: Confirmed By:ANTHONY HARRISON
[2018-08-07 12:52] VITALS: BP 126/85
[2018-08-07 13:52] VITALS: BP 126/85
--- NOTE | 2018-08-07 14:36 | BHS Progress Note ---
[facility] - Subjective Progress Notes Subjective Pt seen in treatment team meeting with staff. Pt continues depressed, with fleeting suicidal thoughts. We discussed his stressors, high risk factors, living alone, marriage ending, former , has alcohol use disorder. Discussed that he has alcohol use disorder even if he is "only binging." Pt willing to meet with AA members and consider attending AA meetings after discharge. So far CIWA scores have been low, not requiring any valium. Discussed his hx with medications-- he says he actually felt better-- less depressed-- after stopping his Paxil 6 days ago. He describes some mild mood swings, not consistent with bipolar disorder-- but enough that I think Lamictal might be a better fit for him. Discussed the risk of Bear-Alan and he knows to watch for rash and inform provider immediately if he notices one. He was prescribed this medication many years ago but only stayed on it for about one month at that time. Continue suicide precautions, begin lamictal, continue groups and individual therapies. Suicidal Ideation: Ongoing Homicidal Ideation: None [facility] - Objective Physical Exam Vital Signs Vital Signs 08/06/18 08/07/18 08/07/18 08:00 09:45 10:23 Temp 98.3 Pulse 68 Resp 18 B/P (MAP) 132/88 (103) Pulse Ox 94 O2 Delivery Room Air Muscle Strength and Tone: WNL Gait and Station: Steady [facility] Medications Reviewed: Side Effects, Benefits of Medication, Risks Allergies Reviewed: Yes Mental Status Exam General Appearance: Well Groomed, Good Eye Contact, Cooperative, Polite, Good Interaction, Tearful Speech: Clear, Spontaneous, Normal Rate, Normal Rhythm, Normal Volume Mood: Dysthmic/Depressed (Patient is tearful.) Affect: Full and Appropriate, Sad, Tearful Thought Process: Organized, Logical, Goal Directed Thought Content: Suicidal Ideation Sensorium: Clear Cognition: Alert & Oriented-Person, Alert & Oriented-Place, Alert & Oriented- Time, Nltli-Cneorttv-Zzjfvejjk Memory: Immediate, Recent, Remote Insight Judgment: Fair Result Diagram: 08/07/1860108/07/18601 [facility] Assessment and Plan [id number] Encounter Date: Aug 07, 2018 [id number] Encounter Time: 10:30 [facility] Plan: Necessary Precautions, Individual/Group Therapy, Admin/Titrate Meds, Educate Patient Tobacco Medications: Started Multpiple Antipsychotics Used: No Problems: (1) Major depressive disorder Status: Chronic (2) Alcohol use disorder, moderate, dependence (3) Cannabis use disorder, moderate, dependence (4) ADHD (attention deficit hyperactivity disorder), combined type FRANECS COX MD Aug 07, 2018 14:36
[2018-08-07 18:00] VITALS: BP 136/100
[2018-08-07] MEDS ORDERED: DIAZEPAM 10 MG TAB PO ONE (21:00)
[2018-08-08 05:52] VITALS: BP 93/62
[2018-08-08] MEDS: lamoTRIgine 25 MG TAB PO SCH (08:21)
[2018-08-08] MEDS: THIAMINE HCL 100 MG TAB PO SCH (08:21)
[2018-08-08] MEDS: MULTIVITAMINS TAB PO SCH (08:21)
[2018-08-08] MEDS: FOLIC ACID 1 MG TAB PO SCH (08:22)
[2018-08-08] MEDS ORDERED: IBUPROFEN 600 MG TAB PO PRN (09:00)
[2018-08-08] MEDS ORDERED: lamoTRIgine 25 MG TAB PO ONE (10:25)
[2018-08-08] MEDS: NICOTINE INH SYSTEM 10 MG/INH INH PRN ×3 (11:19→20:43)
--- NOTE | 2018-08-08 20:51 | BHS Progress Note ---
[facility] - Subjective Progress Notes Subjective Pt seen in conference room with team. Pt continues to report depressed mood, but more hopeful, says he feels that therapy is helping, feels motivated to attend AA meetings after discharge. Last SI was yesterday. Tolerating Lamictal well, denies rash, and we will increase dose to 50 mg today, 75 mg tomorrow... and monitor for rash or SE's. Slept OK last night. Is not scoring on CIWA, so will DC at this time. Will re-order trazodone at . Pt is benefitting from DBT intro/skills that he is working on here, and he is motivated to continue DBT as outpatient. Treatment team tomorrow with his father by phone. Suicidal Ideation: Resolving Homicidal Ideation: None [facility] - Objective Physical Exam Vital Signs Vital Signs 08/07/18 08/08/18 18:00 05:52 Temp 97.9 Pulse 71 Resp 18 B/P (MAP) 93/62 (72) Pulse Ox 94 O2 Delivery Room Air Muscle Strength and Tone: WNL Gait and Station: Steady [facility] Medications Reviewed: Side Effects, Benefits of Medication, Risks Allergies Reviewed: Yes Mental Status Exam General Appearance: Well Groomed, Good Eye Contact, Cooperative, Polite, Good Interaction, Tearful Speech: Clear, Spontaneous, Normal Rate, Normal Rhythm, Normal Volume Mood: Dysthmic/Depressed Affect: Full and Appropriate, Sad Thought Process: Organized, Logical, Goal Directed Thought Content: Suicidal Ideation (resolving); No Homicidal Ideation, No Delusions, No Auditory Halllucinations, No Visual Hallucinations, No Thought Broadcasting, No Ideas of Reference, No Obsessions, No Compulsions, No Other Sensorium: Clear Cognition: Alert & Oriented-Person, Alert & Oriented-Place, Alert & Oriented- Time, Gmxsc-Oqidxezf-Txrygmrfl Memory: Immediate, Recent, Remote Insight Judgment: Fair Result Diagram: 08/07/1860108/07/18601 [facility] Assessment and Plan Mekx-[id number] Encounter Date: Aug 08, 2018 Ijbt-[id number] Encounter Time: 11:00 [facility] Plan: Necessary Precautions, Individual/Group Therapy, Admin/Titrate Meds, Educate Patient Tobacco Medications: Started Multpiple Antipsychotics Used: No Problems: (1) Major depressive disorder Status: Chronic (2) Alcohol use disorder, moderate, dependence (3) Cannabis use disorder, moderate, dependence (4) ADHD (attention deficit hyperactivity disorder), combined type FRANCES COX MD Aug 08, 2018 20:51
[2018-08-08] MEDS ORDERED: traZODone HCL 50 MG TAB PO SCH (21:00)
[2018-08-09 06:18] VITALS: BP 102/72
[2018-08-09] MEDS: THIAMINE HCL 100 MG TAB PO SCH (08:22)
[2018-08-09] MEDS: MULTIVITAMINS TAB PO SCH (08:22)
[2018-08-09] MEDS: FOLIC ACID 1 MG TAB PO SCH (08:22)
[2018-08-09] MEDS ORDERED: lamoTRIgine 25 MG TAB PO ONE (09:00)
[2018-08-09] MEDS: NICOTINE INH SYSTEM 10 MG/INH INH PRN (09:25)
[2018-08-09] MEDS ORDERED: TRAZ50TA34 PO (10:15)
[2018-08-09] MEDS ORDERED: NICOTROL CARTRIDGE PO (10:16)
[2018-08-09] MEDS ORDERED: LAMO100T56 PO (10:19)
--- NOTE | 2018-08-10 11:17 | BHS Discharge Summary ---
[facility] Discharge Summary Fdzu-jm-[id number] Encounter Date: August 09, 2018 Rodv-in-Baxx Encounter Time: 10:00 Reason-Hosp/Final Diag (DSM-V): (1) Major depressive disorder Status: Chronic Hospital Course & Plan: DATE OF ADMISSION: August 05, 2018 DATE OF INITIAL PSYCHIATRIC INTERVIEW: August 06, 2018, at approximately 10 a.m. ATTENDING PROVIDER Le Edmonds, Psychiatric Mental Health Nurse Practitioner PRESENTING PROBLEM/CHIEF COMPLAINT "It's hard to remember what happened. I was feeling lonely and like a failure. Parts of me were thinking about if I wasn't here. There's lots of things going on at work, but generally the weekends become really hard." HISTORY OF PRESENT ILLNESS This patient is a 32-year-old male who was last on the Behavioral Health Unit within the same month, from July 12 through July 16, 2018, for alcohol detoxification. In the afternoon of August 05, 2018, this patient called the crisis line on Behavioral Health reporting that he had had a relapse with alcohol. [facility] [place] [employer] for a welfare check. Law enforcement was able to bring patient to the emergency room for further evaluation and treatment. Patient was evaluated and accepted for admission and also had been placed on an emergency jail with a Title 25 evaluation completed in the emergency department. Patient reports that since his last discharge, he has relapsed with drinking alcohol, primarily on the weekends. He did follow up with some couples counseling with his , who at that time reported to him that she did want to follow through with their divorce. Patient is now living by himself. The four children are staying at his 's home. He reports that he does have work- related stress and becomes lonely and has had relapse with alcohol on the weekends, primarily. He reports two weeks prior to admission, he also did have an event where he felt like he was going to self-harm with knives. He called his , and the had to take the knives out of his home. He has also had firearms removed from the home and has previously had a loaded gun to his face with the intent of self-harming prior to the last admission. He denies previous self-harm behaviors such as cutting, but had the urge to poke himself with a knife two weeks ago, at which time the took the knives away out of the home. HOSPITAL COURSE Pt was admitted to [facility] and maintained on suicide precautions. He was placed on CIWA protocol and he used a total of 100 mg of valium for detox, which was uncomplicated. We discussed his hx of depression-- he has history of minor mood swings, irritability, hypomania-- does not meet criteria for bipolar, but we felt lamictal might be a better choice for his depressive sx's. He had actually been on it many years ago for about a month, and he understood the risk of Bear Alan. This was titrated to 100 mg per day, and was well tolerated. We discussed his hx of ADHD. His UDS was positive for amphetamines on admission since he takes vyvanse. He would like to give Strattera a try, and he will discuss this with outpatient provider-- in the mean time, he can resume his vyvanse after discharge (he only takes it on days when he works or has heavy load of reading to do). He participated actively in all groups and individual therapies; his father participated in treatment team meeting and was very supportive. Pt's affect was bright and hopeful on day of discharge, he was free of SI. He will follow up at [facility] for DBT group and individual therapy, he will also attend AA meetings, and he would like to follow up with [facility] for medications. (2) Alcohol use disorder, moderate, dependence (3) Cannabis use disorder, moderate, dependence (4) ADHD (attention deficit hyperactivity disorder), combined type Mental Status Exam General Appearance: Well Groomed, Good Eye Contact, Cooperative, Polite, Good Interaction, Tearful Speech: Clear, Spontaneous, Normal Rate, Normal Rhythm, Normal Volume Mood: Dysthmic/Depressed Affect: Full and Appropriate, Sad Thought Process: Organized, Logical, Goal Directed Thought Content: Suicidal Ideation (resolving); No Homicidal Ideation, No De lusions, No Auditory Halllucinations, No Visual Hallucinations, No Thought Broadcasting, No Ideas of Reference, No Obsessions, No Compulsions, No Other Sensorium: Clear Cognition: Alert & Oriented-Person, Alert & Oriented-Place, Alert & Oriented- Time, Llbtv-Wtrplgng-Xzaglmrtj Memory: Immediate, Recent, Remote Insight Judgment: Fair Departure Result Diagram: 08/07/1860108/07/18601 Item Value Date Time Salicylates Level < 10 mg/L 08/05/182109 Salicylate Last Dose Date unk 08/05/182109 Urine Opiates Screen Negative 08/05/182134 Acetaminophen Level < 10 ug/ml 08/05/182109 Urine Barbiturates Screen Negative 08/05/182134 Ur Tricyclic Antidepressants Screen Negative 08/05/182134 Urine Phencyclidine Screen Negative 08/05/182134 Urine Amphetamines Screen Positive 08/05/182134 Urine Benzodiazepines Screen Negative 08/05/182134 Urine Cocaine Screen Negative 08/05/182134 Urine Cannabinoids Screen Negative 08/05/182134 Serum Alcohol 245 mg/dl 08/05/182109 Urine Color Yellow 08/05/182134 Urine Clarity Clear 08/05/182134 Urine pH 6.0 pH 08/05/182134 Urine Specific [place] 1.009 08/05/182134 Urine Protein Negative mg/dL 08/05/182134 Urine Glucose (UA) Negative mg/dL 08/05/182134 Urine Ketones Negative mg/dL 08/05/182134 Urine Blood Negative 08/05/182134 Urine Nitrite Negative 08/05/182134 Urine Bilirubin Negative 08/05/182134 Urine Urobilinogen Negative mg/dL 08/05/182134 Urine Leukocyte Esterase Negative 08/05/182134 Thyroid Stimulating Hormone (TSH) 1.13 uIU/ml 08/05/182109 Condition: Improved Discharge to: Home Discharge Instructions Home Meds Reported Medications Lamotrigine (LAMICTAL) 100 Mg Tablet, 100 MG PO QAM 08/09/18 [Nicotrol Cartridge] No Conflict Check, 1 EA PO PRN PRN for NICOTINE REPLACEMENT 08/09/18 Trazodone Hcl (TRAZODONE HCL) 50 Mg Tablet, 50 MG PO QHS 08/09/18 Docusate Sodium (COLACE) 100 Mg Capsule, 100 MG PO QAM, CAPSULE 07/16/18 Nicotine (NICOTROL) 10 Mg/Inh Ctr, 10 MG INH Q1-2H PRN for NICOTINE REPLACEMENT 07/16/18 Lisdexamfetamine Dimesylate (VYVANSE) 60 Mg Capsule, 60 MG PO QDAY, CAPSULE 07/13/18 Discontinued Reported Medications Multivits,Ca,Minerals/Iron/Fa (THERA-M TABLET) 1 Each Tablet, 1 EACH PO DAILY 07/16/18 Paroxetine Hcl (PAROXETINE HCL) 10 Mg Tablet, 20 MG PO QDAY 07/13/18 Clonidine Hcl (CLONIDINE HCL) 0.1 Mg Tablet, 0.5-1 TAB PO BID, TAB 07/13/18 Multpiple Antipsychotics Used: No Diet: Regular Activity: As Tolerated Special Instructions: Abstain from alcohol & all illicit substances. Take medications as prescribed. Follow up with [facility] for medication management. Follow up with outpatient therapy. Follow up with AA. Obtain an AA Sponsor & utilize them. Call Crisis Line should symptoms return. Problem Qualifiers (1) Major depressive disorder: Major depression recurrence: recurrent Active/Remission status: in partial remission Qualified Codes: F33.41 - Major depressive disorder, recurrent, in partial remission FRANCES COX MD August 10, 2018 11:17
== END 2018-08-09 11:15 | disposition home or self-care (01) | DRG 897 ==
LOC: BHS 22:14
PROVIDERS: ADMIT Nurse Practitioner Psychiatric/Mental Health; ATTEND Nurse Practitioner Psychiatric/Mental Health
DX: F10.230 Alcohol dependence with withdrawal, uncomplicated (principal); R45.851 Suicidal ideations; F10.20 Alcohol dependence, uncomplicated; F12.20 Cannabis dependence, uncomplicated; F32.9 Major depressive disorder, single episode, unspecified; F90.2 Attention-deficit hyperactivity disorder, combined type; Y90.8 Blood alcohol level of 240 mg/100 ml or more; Z63.5 Disruption of family by separation and divorce
CPT/HCPCS: 36415; 82040; 82247; 82310; 82374; 82435; 82565; 82947; 84075; 84132; 84155; 84295; 84450; 84460; 84520; 85025; 93005